=== PATIENT | female | born 1955 | race Caucasian/White ===

== ENCOUNTER 2020-09-16 08:57 | Day surgery (SDC) | payer BC ==
[2020-09-19 08:45] LABS: Performing Lab SYMBIODX; Test Name TISSUE BIOPSY
== END 2020-09-16 23:00 | disposition home or self-care (01) ==
LOC: MOI US 08:57
PROVIDERS: Pathology Anatomic Pathology & Clinical Pathology
DX: N63.10 Unspecified lump in the right breast, unspecified quadrant (principal); R59.9 Enlarged lymph nodes, unspecified; Z85.3 Personal history of malignant neoplasm of breast
CPT/HCPCS: 19083; 77065; 81261; 88305; 88341; 88342; A4648

== ENCOUNTER 2020-12-18 12:59 | Day surgery (SDC) | payer BC ==
[~2020-12-18] VITALS: Ht 172.7 cm; Wt 61.7 kg
[2020-12-18] MEDS ORDERED: TEMA15 PO (13:26)
[2020-12-18] MEDS ORDERED: NAPR220 PO (13:27)
[2020-12-18] MEDS ORDERED: 1/2 NS 250ml250 ML (13:27)
--- NOTE | 2020-12-18 16:53 | NUR ---
12/18/20 1653 Maria E Mackenzie PT STATES SHE IS HAVING A POUNDING HEADACHE, REFUSES PAIN MEDICATIONS, OFFERED CAFFINATED BEVERAGE AND WATER.COOL WASHCLOTH,ICE PACK FOR HER HEAD. WILLCONTINUE TO MONITOR AND ACCESS.
[2020-12-20 10:48] LABS: Performing Lab SYMBIODX; Test Name EMBEDDED TISS B
[2020-12-27 15:02] LABS: Result SEE SEPERATE REPORT
== END 2020-12-18 17:55 | disposition home or self-care (01) ==
LOC: ORSCSDS 12:59
PROVIDERS: Surgery
PROC: 0KBH0ZX Excision of Right Thorax Muscle, Open Approach, Diagnostic (ICD-10-PCS; principal; 2020-12-18 14:15)
DX: D48.1 Neoplasm of uncertain behavior of connective and other soft tissue (principal); Z85.3 Personal history of malignant neoplasm of breast
CPT/HCPCS: 88305; 88341; 88342; A9270; J0690; J2250; J2370; J2405; J2704; J2765; J3010; J7120

== ENCOUNTER 2023-03-23 07:49 | Day surgery (SDC) | payer MEDICARE, BC ==
[~2023-03-23] VITALS: Ht 171 cm; Wt 63.3 kg
[2023-03-23] VITALS (14 sets, daily range): BP systolic 90–134; BP diastolic 51–109
[~2023-03-23 07:49] MED LIST: 1/2 NS 250ml250 ML; NAPR220 PO; TEMA15 PO
--- NOTE | 2023-03-23 08:39 | NUR ---
PATIENT REPORTS CLEAR RESULTS FOLLOWING BOWEL PREP. STATES SHE LEFT HER UPPER PARTIAL DENTURE AT HOME.
--- NOTE | 2023-03-23 09:02 | NUR ---
03/23/23 0902 Gianfranco Hernandez HISTORY, CHART, MEDICATIONS AND ALLERGIES REVIEWED BEFORE START OF PROCEDURE. PATIENT CONFIRMS NPO STATUS AND AGREES WITH SCHEDULED PROCEDURE. 3-LEAD EKG REVIEWED WITH PHYSICIAN PRIOR TO START OF PROCEDURE. MONITOR INTACT WITH CONTINUOUS PULSE OXIMETRY,CAPNOGRAPHY, 3-LEAD EKG, INTERMITTENT BP. SUPPLEMENTAL O2 TO BE TITRATED THROUGHOUT PROCEDURE TO MAINTAIN O2 SATURATION ABOVE 90%. PATIENT DETERMINED TO BE ASA APPROPRIATE FOR PROPOFOL SEDATION PRIOR TO START OF PROCEDURE BY
--- NOTE | 2023-03-23 09:22 | NUR ---
REPORT RECEIVED FROM SHAE HILL. VSS. PT ABLE TO REPOSITION SELF IN BED. PT SITTING UP. PT REQUESTING PO FOOD AND FLUIDS AND TOLERATING THEM WELL. PT DENIES PAIN, NAUSEA, OR OTHER DISCOMFORTS.
== END 2023-03-23 09:43 | disposition home or self-care (01) ==
LOC: ORSCMMR 07:49 → ORD 08:30 → ORSCMMR 08:30
PROVIDERS: Internal Medicine Gastroenterology
PROC: 0DBP8ZX Excision of Rectum, Via Natural or Artificial Opening Endoscopic, Diagnostic (ICD-10-PCS; principal; 2023-03-23 08:30)
PROC: 0DBN8ZX Excision of Sigmoid Colon, Via Natural or Artificial Opening Endoscopic, Diagnostic (ICD-10-PCS; principal; 2023-03-23 08:30)
DX: Z12.11 Encounter for screening for malignant neoplasm of colon (principal); R19.5 Other fecal abnormalities; K63.5 Polyp of colon; K62.1 Rectal polyp; K57.30 Diverticulosis of large intestine without perforation or abscess without bleeding; I47.10 Supraventricular tachycardia, unspecified; Z79.899 Other long term (current) drug therapy
CPT/HCPCS: 88305; J2405; J2704; J7120